=== PATIENT | male | born 1955 | race Two or more races ===

== ENCOUNTER 2025-01-28 06:41 | Day surgery (SDC) | payer MEDICARE, MEDICAID, SELFPAY ==
[2025-01-24 18:52] VITALS: BMI 25.7
[2025-01-27 11:17] LABS: Basophils # (Auto) 0.1 Thou/mm3 (0.0-0.2); Basophils % (Auto) 1 % (0-2.5); Eosinophils # (Auto) 0.1 Thou/mm3 (0.0-0.5); Eosinophils % (Auto) 1 % (0-10); Hematocrit 46.8 % (41.0-53.0); Hemoglobin 16.3 g/dL (13.5-16.0); Immature Granulocytes % (Auto) 1 % (0-0); Immature Granulocytes Auto 0.15 Thou/mm3 (0.00-0.00); Lymphocytes # (Auto) 1.4 Thou/mm3 (1.0-4.8); Lymphocytes % (Auto) 13 % (10-50); Mean Corpuscular HGB Conc 34.8 g/dl (31.0-37.0); Mean Corpuscular Hemoglobin 30.4 pg (25.0-35.0); Mean Corpuscular Volume 87 fL (80-100); Monocytes # (Auto) 0.9 Thou/mm3 (0.0-0.8); Monocytes % (Auto) 8 % (0-12); Neutrophils # (Auto) 8.3 Thou/mm3 (1.8-7.7); Neutrophils % (Auto) 76 % (37-80); Nucleated Red Blood Cell # 0.03 Thou/mm3 (0.00-0.00); Nucleated Red Blood Cell % 0 /100 WBC (0); Platelet Count 175 Thou/mm3 (140-440); RDW Standard Deviation 42.1 fL (35.1-43.9); Red Blood Count 5.37 Miln/mm3 (4.50-5.90); White Blood Count 10.8 Thou/mm3 (3.8-10.6)
[2025-01-27 11:24] LABS: INR 1.1 (0.9-1.3); Partial Thromboplastin Time 26.8 Seconds (22.0-36.0); Prothrombin Time 11.8 Seconds (9.0-12.2)
[2025-01-27 11:35] LABS: COVID-19 Antigen (In-House) Negative (Negative)
[2025-01-27 11:41] LABS: Anion Gap 12 (7-16); BUN/Creatinine Ratio 19 Ratio (12-20); Blood Urea Nitrogen 21 mg/dL (9-23); Calcium 9.6 mg/dL (8.3-10.6); Carbon Dioxide 28.5 mMol/L (20.0-31.0); Chloride 105 mMol/L (98-107); Creatinine (Component) 1.1 mg/dL (0.6-1.3); Estimated Creatinine Clearance 82.1 mL/min (>60); Glucose 144 mg/dL (74-106); Osmolality,Calculated 294 (275-295); Potassium 3.1 mMol/L (3.4-5.1); Sodium 145 mMol/L (136-145); eGFR > 60 See Note
--- NOTE | 2025-01-27 18:49 | EKG_ITS ---
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 : 1955 Requested By: Se Mason Order Number: [id number] Reading MD: Se Mason Measurements Intervals [place] Rate: 64 P: FL: QRS: -51 QRSD: 124 T: 122 QT: 385 QTc: 397 Interpretive Statements ATRIAL FIBRILLATION MODERATE VOLTAGE CRITERIA FOR LVH, CONSIDER NORMAL VARIANT [MEETS CRITERIA IN ONE OF: R(aVL), S(V1), R(V5), R(V5/V6)+S(V1)] POSSIBLE SEPTAL MYOCARDIAL INFARCTION , PROBABLY OLD [30 ms Q WAVE IN V1/V2] INFERIOR MYOCARDIAL INFARCTION , PROBABLY OLD [40+ ms Q WAVE AND/OR ST/T ABNORMALITY IN II/aVF] MODERATE T-WAVE ABNORMALITY, CONSIDER LATERAL ISCHEMIA [-0.1+ mV T WAVE IN I/aVL/V5/V6] No previous ECG available for comparison /[email or web address]/[id number]
[2025-01-28] VITALS (16 sets, daily range): BP systolic 153–186; BP diastolic 105–138; PULSE 62–88; RESP 12–21; TEMP 36.4–37.1; O2SAT 92–97
[2025-01-28] MEDS: DIAZEPAM 5 MG TABLET PO (07:20)
--- NOTE | 2025-01-28 08:14 | ESOP_ITS ---
Cardiac Cath Procedure Procedure Narrative Date of the procedure 01/28/2025 Title of the procedure 1. Left heart catheterization 2. Left coronary angiogram 3. Right coronary angiogram 4. Left ventriculogram 5. Conscious sedation 6. Radiographic interpretation supervision 7. Ultrasound guidence for Right radial access 8.angioplasty and stent placement to mid RCA Indication for the procedure This is a 69-year-old gentleman with past medical history of hypertension hyperlipidemia Patient was complaining of atypical chest pain Patient did undergo stress test which was abnormal Cardiac testing cholangiogram recommended Procedure This is done in the cardiac lab under continuous electrocardiographic monitoring Intermittent blood pressure monitoring right radial arterial access obtained using modified Seldinger technique 6 [place] radial sheath was placed under ultrasound guidence TIG catheter was used for selective injection of the Left coronary artery TIG cather was used for selective injection of the Right coroanry artery TIG cather was used for LV gram Findings Hemodynamics Left ventricular systolic function is 55% Left ventricular end-diastolic pressure is 16 mmHg Gradient across the aortic valve is 0 mm gradient Coronary anatomy Right dominance Left main coronary artery is normal Left anterior descending artery is luminal regularities in the midsegment 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 Diagonal vessel is luminal regularities Left circumflex artery is mid to distal luminal irregularities 30 to 40% Obtuse marginal vessel is showing luminal irregularities Right coronary artery is showing a mid segment lesion of 80% Posterior descending artery is luminal irregularities Conclusion Significant lesion noted in the RCA Recommendation Angioplasty and stent placement Angioplasty and stent placement mid RCA JR4 guiding catheter used to obtain coaxial access Banding Machine Operator 50 wire was used to cross the lesion Direct stenting with 4.5x 18 mm stent was placed across the lesion and dilated up to 14 ronal Post an angiogram reveals adequate expansion of the entire length of the stent Conclusion Successful angioplasty and stent placement mid RCA
--- NOTE | 2025-01-28 08:29 | EKG_ITS ---
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
[2025-01-28] MEDS: MORPHINE SULF INJ 10 MG/ML VIAL 2 MG IVP (08:32)
[2025-01-28] MEDS: SODIUM CHLORIDE 0.9% 1000 ML 500 ML 250 ML IV (08:37)
[2025-01-28] MEDS: ONDANSETRON INJ 2 MG/ML INJ 2 ML 4 MG IV (08:37)
--- NOTE | 2025-01-28 08:44 | PC.NURSE ---
MD made aware of patient's BP of 194/131. No new orders at this time as per MD continue to monitor patient. Notify MD immediately if there's any changes.
[2025-01-28] MEDS: hydrALAZINE INJ 20 MG/ML VIAL 10 MG IV (11:52)
== END 2025-01-28 12:30 | disposition home or self-care (01) ==
PROVIDERS: PCP Obstetrics & Gynecology; Referring Provider Internal Medicine; Visit Provider Internal Medicine
PROC: (CPT 93458; principal; 2025-01-28 07:45)
DX: I25.118 Atherosclerotic heart disease of native coronary artery with other forms of angina pectoris (principal); E78.5 Hyperlipidemia, unspecified; I10 Essential (primary) hypertension; Z01.810 Encounter for preprocedural cardiovascular examination
CPT/HCPCS: 93458; C9600; 36415; 80048; 85025; 85610; 85730; 87811; 93005; 99152; 99153; A4216; A4649; C1769; C1874; C1887; C1894; J0171; J0360; J0461; J0583; J1643; J2250; J2270; J2310; J2371; J2405; J3010; J3490; J7030; Q9967; A9270; J2305

== ENCOUNTER → 2025-03-04 | Outpatient (CLI) | payer MEDICARE, MEDICAID, SELFPAY ==
[2025-03-04 08:56] LABS: Basophils % (Auto) 0 % (0-2.5); Eosinophils # (Auto) 0.2 Thou/mm3 (0.0-0.5); Eosinophils % (Auto) 3 % (0-10); Hematocrit 49.1 % (41.0-53.0); Hemoglobin 17.2 g/dL (13.5-16.0); Immature Granulocytes % (Auto) 0 % (0-0); Immature Granulocytes Auto 0.02 Thou/mm3 (0.00-0.00); Lymphocytes # (Auto) 1.4 Thou/mm3 (1.0-4.8); Lymphocytes % (Auto) 21 % (10-50); Mean Corpuscular Hemoglobin 31.3 pg (25.0-35.0); Mean Corpuscular Volume 89 fL (80-100); Monocytes # (Auto) 0.6 Thou/mm3 (0.0-0.8); Monocytes % (Auto) 8 % (0-12); Neutrophils # (Auto) 4.5 Thou/mm3 (1.8-7.7); Neutrophils % (Auto) 67 % (37-80); Nucleated Red Blood Cell % 0 /100 WBC (0); Platelet Count 164 Thou/mm3 (140-440); RDW Standard Deviation 42.1 fL (35.1-43.9); Red Blood Count 5.49 Miln/mm3 (4.50-5.90); White Blood Count 6.7 Thou/mm3 (3.8-10.6)
[2025-03-04 09:05] LABS: INR 1.1 (0.9-1.3); Prothrombin Time 11.8 Seconds (9.0-12.2)
[2025-03-04 09:06] LABS: Anion Gap 7 (7-16); BUN/Creatinine Ratio 13 Ratio (12-20); Blood Urea Nitrogen 13 mg/dL (9-23); Calcium 8.8 mg/dL (8.3-10.6); Carbon Dioxide 33.4 mMol/L (20.0-31.0); Chloride 101 mMol/L (98-107); Glucose 118 mg/dL (74-106); Osmolality,Calculated 282 (275-295); Potassium 3.2 mMol/L (3.4-5.1); Sodium 141 mMol/L (136-145); eGFR > 60 See Note
== END | disposition home or self-care (01) ==
LOC: SLAB 08:11
PROVIDERS: PCP Obstetrics & Gynecology; Referring Provider Internal Medicine; Visit Provider Internal Medicine
DX: I25.10 Atherosclerotic heart disease of native coronary artery without angina pectoris (principal); I48.91 Unspecified atrial fibrillation
CPT/HCPCS: 36415; 80048; 85025; 85610; 85730

== ENCOUNTER 2025-07-03 08:14 | Emergency (ER) | payer MEDICARE, MEDICAID, SELFPAY ==
[2025-07-03 08:24] VITALS: BP 121/78; PULSE 77; RESP 18; TEMP 36.4; O2SAT 95; BMI 30.9
--- NOTE | 2025-07-03 09:51 | XR_ITS ---
Examination: CT abdomen and pelvis without contrast. Coronal 3-D reconstructions. Sagittal 2-D reconstructions. Date and time of exam:July 03, 2025, 1004 hrs. Comparison: February 15, 2023 Indications: Lower abdominal pain with hematuria today, history kidney stones CTDI: vol (mGy): 9.46 DLP: (mGycm): 571 Technique: Axial images of the abdomen have been obtained, 3 mm slice thickness Intravenous contrast material has not been administered. Low dose protocols were performed. One or more of the following dose reduction techniques were used; automated exposure control, adjustment of the mA and/or KV according to patient size, use of iterative reconstruction technique. Findings: Mild enlargement cardiac contour Diffuse fatty infiltration throughout the liver, liver is irregular in contour No gallstones No pancreatic or adrenal mass No splenic lesion 2 mm lower pole left renal calculus No hydronephrosis or ureteral calculi No bowel obstruction Normal appendix Colonic diverticulosis Urinary bladder contracted around a Ma catheter with thickened urinary bladder wall Suspicious for tiny bladder calculi Marked prostatomegaly with prostate calcifications, transverse prostate dimension 6.7 cm The multiple prostate calcifications appear to project partly within the prostatic urethra, clinical correlation advised Impression: 2 mm lower pole nonobstructing left renal calculus No hydronephrosis Normal appendix Marked prostatomegaly, prostate calcifications appear to project partly within the prostatic urethra, clinical correlation advised Suspicious for tiny bladder calculi, recommend urinary bladder sonography follow-up
--- NOTE | 2025-07-03 09:51 | PD.EDRME ---
Rapid Medical Screening Exam RME Arrival date/time: 07/03/25 08:14 69-year-old male presents to the emergency department today stating he has decreased urinary output from his Ma catheter patient reports pain Chief Complaint: Urogenital-Male Time Seen by Provider: 07/03/25 08:34 Vital signs: Vital Signs Temperature 97.5 F 07/03/25 08:24 Pulse Rate 77 07/03/25 08:24 Respiratory Rate 18 07/03/25 08:24 Blood Pressure 121/78 07/03/25 08:24 Pulse Oximetry (%) 95 07/03/25 08:24 Oxygen Delivery Method Room Air 07/03/25 08:24
--- NOTE | 2025-07-03 09:52 | PC.NURSE ---
16F FC flushed with 240ml sterile water, FC patent and draining to gravity. Gross hematuria before and after flushing.
[2025-07-03 11:06] LABS: Basophils # (Auto) 0.0 Thou/mm3 (0.0-0.2); Basophils % (Auto) 0 % (0-2.5); Eosinophils # (Auto) 0.4 Thou/mm3 (0.0-0.5); Eosinophils % (Auto) 4 % (0-10); Hematocrit 39.9 % (41.0-53.0); Hemoglobin 14.0 g/dL (13.5-16.0); Immature Granulocytes Auto 0.04 Thou/mm3 (0.00-0.00); Lymphocytes # (Auto) 1.1 Thou/mm3 (1.0-4.8); Lymphocytes % (Auto) 11 % (10-50); Mean Corpuscular HGB Conc 35.1 g/dl (31.0-37.0); Mean Corpuscular Hemoglobin 30.6 pg (25.0-35.0); Mean Corpuscular Volume 87 fL (80-100); Monocytes # (Auto) 0.7 Thou/mm3 (0.0-0.8); Monocytes % (Auto) 7 % (0-12); Neutrophils # (Auto) 7.8 Thou/mm3 (1.8-7.7); Neutrophils % (Auto) 78 % (37-80); Nucleated Red Blood Cell # 0.00 Thou/mm3 (0.00-0.00); Nucleated Red Blood Cell % 0 /100 WBC (0); Platelet Count 229 Thou/mm3 (140-440); RDW Standard Deviation 39.0 fL (35.1-43.9); Red Blood Count 4.58 Miln/mm3 (4.50-5.90); White Blood Count 10.1 Thou/mm3 (3.8-10.6)
[2025-07-03 11:25] LABS: Alanine Aminotransferase 30 U/L (10-49); Albumin, Serum 3.9 gm/dL (3.4-4.8); Albumin/Globulin Ratio 1.7 (1.2-2.2); Alkaline Phosphatase 49 U/L (46-116); Anion Gap 11 (7-16); Aspartate Amino Transferase 28 U/L (0-34); BUN/Creatinine Ratio 12 Ratio (12-20); Bilirubin,Total 0.9 mg/dL (0.3-1.2); Blood Urea Nitrogen 14 mg/dL (9-23); Calcium 9.4 mg/dL (8.3-10.6); Calcium (Corrected) 9.5 mg/dL (8.5-10.1); Carbon Dioxide 28.9 mMol/L (20.0-31.0); Chloride 103 mMol/L (98-107); Creatinine (Component) 1.2 mg/dL (0.6-1.3); Estimated Creatinine Clearance 70.1 mL/min (>60); Globulin 2.3 gm/dL (2.3-3.5); Glucose 102 mg/dL (74-106); Osmolality,Calculated 285 (275-295); Potassium 3.1 mMol/L (3.4-5.1); Sodium 143 mMol/L (136-145); Total Protein 6.2 gm/dL (5.7-8.2); eGFR > 60 See Note
[2025-07-03 11:29] VITALS: BP 168/100; PULSE 71; RESP 17; O2SAT 96
[2025-07-03 11:39] LABS: Collection Type, Urine Clean Catch; Squamous Epithelial Cell,Urine 0 /hpf (0-5)
[2025-07-03 11:53] LABS: INR 1.2 (0.9-1.3); Partial Thromboplastin Time 30.3 Seconds (22.0-36.0); Prothrombin Time 12.5 Seconds (9.0-12.2)
--- NOTE | 2025-07-03 11:54 | PD.EDMALE ---
ED Male Genitalurinary RME/HPI General Chief complaint: Urogenital-Male Stated complaint: No urination X 2 days Time Seen by Provider: 07/03/25 08:34 Arrival date/time: 07/03/25 08:14 RME / HPI RME / HPI Narrative: 69-year-old male patient with significant history of hypertension diabetes mellitus, CAD, currently on Plavix, came in for evaluation regarding acute urinary retention. Patient had procedure done in [place] in his bladder, according to him he had a, placed, and noticed that there is some blood clots obstructing the Ma catheter. Patient is complaining of suprapubic distention and discomfort. Denies any fever denies any other complaints no medications taken prior to arrival. Related Data Home Medications ?Medication ?Instructions ?Recorded ?Confirmed losartan 50 mg-hydrochlorothiazide 1 tab PO QDAY 09/11/19 01/28/25 12.5 mg tablet tamsulosin 0.4 mg capsule (Flomax) 0.4 mg PO QDAY 09/11/19 09/12/19 losartan 100 mg tablet 100 mg PO DAILY 01/28/25 01/28/25 Previous Rx's ?Medication ?Instructions ?Recorded aspirin 81 mg chewable tablet 81 mg PO QDAY #30 tabs 01/28/25 clopidogrel 75 mg tablet (Plavix) 75 mg PO QDAY #60 tabs 01/28/25 ciprofloxacin HCl 500 mg tablet 500 mg PO BID #14 tabs 07/03/25 (Cipro) Allergies Allergy/AdvReac Type Severity Reaction Status Date / Time No Known Allergies Allergy Verified 01/24/25 18:51 Review of Systems Review of Systems Narrative Review of Systems: Review of system reviewed and within normal limits except mentioned in HPI ED Exam Narrative Physical exam: VITAL SIGNS: Reviewed. GENERAL APPEARANCE: Alert and interactive, follows commands, no acute distress, HEAD AND FACE: Non-traumatic. ENT: PERRL, pink conjunctivitis, eyelid no trauma, Mucous membrane moist. NECK: Supple, nontender, no nuchal rigidity. CHEST: No tenderness, no crepitus, no paradoxical movement, no retractions. LUNGS: Clear, well ventilated, symmetric, no rales, no wheezing, no ronchi, no stridor, good breath sounds bilaterally. HEART: Regular rate, regular rhythm, no murmur, no gallops. ABDOMEN: Soft, positive bowel sounds, nondistended, no guarding, nontender, no rebound, no masses, RECTAL: Deferred. GENITAL: Ma catheter intact however there is a gross hematuria noted with blood clots, suprapubic distention and tenderness NEUROLOGICAL: Gross motor function intact sensory function intact, Appropriate for age. MUSCULOSKELETAL: low back nontender, full range of motion. EXTREMITIES: Nontender, full range of motion. SKIN: Color pink, dry, no rash, no lacerations, no abrasions, no contusions. LYMPHATICS: Deferred. Course Quality Measures none Orders Category Date Time Status Continuous Bladder Irrigation QSHIFT Care 07/03/25 11:52 Active Ma [Urinary Catheter, Remove] ONCE Care 07/03/25 08:44 Active Ma [Urinary Catheter] NOW Care 07/03/25 08:44 Active Ma to Leg Bag Routine Care 07/03/25 08:[address] abdomen pelvis wo con Stat Exams 07/03/25 09:51 Completed CBC Stat Lab 07/03/25 10:47 Completed Comprehensive Metabolic Panel Stat Lab 07/03/25 10:47 Completed Partial Thromboplastin Time Stat Lab 07/03/25 10:47 Completed Prothrombin Time with INR Stat Lab 07/03/25 10:47 Completed UA, C/S IF [Urinalysis, C/S if Indicated] Stat Lab 07/03/25 11:36 Completed Urine Culture Stat Lab 07/03/25 11:36 Received Ciprofloxacin HCl [Ciprofloxacin] Med 07/03/25 14:01 Discontinued 500 mg PO X1 ONE Lidocaine Jelly 2% Urojet [Xylocaine Jelly 2% Urojet] Med 07/03/25 11:51 Discontinued See Dose Instructions TOP X1 ONE Morphine Inj Med 07/03/25 11:59 Discontinued 4 mg IVP X1 ONE Ondansetron Inj [Zofran Inj] Med 07/03/25 11:59 Discontinued 4 mg IVP X1 ONE Potassium Chloride [K-Dur] Med 07/03/25 15:43 Discontinued 40 meq PO X1 ONE Ringers Lactated 1000 ml [Lactated Ringers] 1,000 ml Med 07/03/25 11:51 Discontinued IV 999 mls/hr Tranexamic Acid 1,000 mg Ivpb [Tranexamic Acid Ivpb] Med 07/03/25 14:02 Discontinued 1,000 mg in 100 ml IV X1 Vital Signs Vital signs: Vital Signs Temperature 97.5 F 07/03/25 08:24 Pulse Rate 77 07/03/25 08:24 Respiratory Rate 18 07/03/25 08:24 Blood Pressure 121/78 07/03/25 08:24 Pulse Oximetry (%) 95 07/03/25 08:24 Oxygen Delivery Method Room Air 07/03/25 08:24 Urogenital - Male [facility] Narrative MDM Narrative:: 69-year-old male patient with significant history of hypertension diabetes mellitus, CAD, currently on Plavix, came in for evaluation regarding acute urinary retention. Patient had procedure done in [place] in his bladder, according to him he had a, placed, and noticed that there is some blood clots obstructing the Ma catheter. Patient is complaining of suprapubic distention and discomfort. Denies any fever denies any other complaints no medications taken prior to arrival. Patient received 2 rounds of continuous bladder irrigations, and prior to discharge did not notice pinkish urine but normal blood clots noted. Draining well. Patient's urinalysis positive for hematuria and UTI. Patient was given Cipro. Patient was also given IV fluids. Was also given IV TXA. Was also given potassium replacement. Was advised to call his urologist problems sound unremarkable tomorrow morning. Patient agrees with the plan. Will be sent home on Cipro Patient data External records reviewed:: None Clinical information provided by:: patient Social determinants that could affect healthcare access:: none Patient has the following chronic illnesses:: BPH, hypertension How is presenting disease/condition affected by chronic disease/condition?: exacerbated by Evaluation data The following diagnostics were reviewed and interpreted by me:: lab results and radiology exam(s) Lab and/or radiology exams considered but not ordered:: None Interpretation Summary: See results [facility] Medications / Prescriptions Medications or Prescriptions considered but not ordered:: None Medication administrations:: Medication Administration History Discontinued Medications Ciprofloxacin (Ciprofloxacin Hcl 250 Mg Tablet) 500 mg PO X1 ONE Stop: 07/03/25 14:02 Last Admin: 07/03/25 14:12 Dose: 500 mg Documented By: CRISTHIAN Lactated Ringer's (Lactated Ringers) 1,000 mls @ 999 mls/hr IV .Q1H1M ONE Stop: 07/03/25 12:51 Last Infusion: 07/03/25 13:13 Dose: Infused Documented By: Admin: 07/03/25 12:00 Dose: 999 mls/hr Documented By: GM Tranexamic Acid (Tranexamic Acid Ivpb) 1,000 mg in 100 mls @ 200 mls/hr IV X1 ONE Stop: 07/03/25 14:31 Last Infusion: 07/03/25 14:42 Dose: Infused Documented By: Admin: 07/03/25 14:12 Dose: 200 mls/hr Documented By: EF Lidocaine HCl (Lidocaine Jelly 2% (Urojet) 10 Ml Tube) 0 ml TOP X1 ONE Stop: 07/03/25 11:52 Last Admin: 07/03/25 12:26 Dose: 10 ml Documented By: EF Morphine Sulfate (Morphine Sulf Inj 10 Mg/Ml Vial) 4 mg IVP X1 ONE Stop: 07/03/25 12:00 Last Admin: 07/03/25 12:25 Dose: 4 mg Documented By: EF Ondansetron HCl (Ondansetron Inj 2 Mg/Ml Inj 2 Ml) 4 mg IVP X1 ONE; Protocol Stop: 07/03/25 12:00 Last Admin: 07/03/25 12:25 Dose: 4 mg Documented By: EF Potassium Chloride (Potassium Chloride 20 Meq Tabcr) 40 meq PO X1 ONE Stop: 07/03/25 15:44 Last Admin: 07/03/25 16:22 Dose: 40 meq Documented By: EF IV fluids, morphine, potassium replacement Zofran Cipro and tranexamic acid Consultations Consultation(s) initiated? (list below): No Diagnosis Urogenital Male Differential Diagnosis: urinary tract infection, acute retention of urine and other (Gross hematuria) Most likely diagnosis given after review of the tests above:: Gross hematuria, acute urinary retention Admission Indicated Admission indicated?: not indicated Admission Request Was there a request for admission?: No Disposition Plan Disposition Plan: Discharge Discharge Attestation Discharge Attestation: The patient and all family members were given an opportunity to ask questions and understood the discharge instructions. Discharge instructions specifically effects, indications for sooner follow up or return to the emergency department, and the expected course of current diagnosis. Patient condition: Stable Discharge Plan Plan Patient Disposition: HOME (Self Care) Discharge Disposition comment: Stable Prescriptions/Referrals Prescriptions/Med Rec: New ciprofloxacin HCl [Cipro] 500 mg tablet 500 mg PO BID Qty: 14 0RF No Action tamsulosin [Flomax] 0.4 mg Capsule 0.4 mg PO QDAY losartan-hydrochlorothiazide 50-12.5 mg Tablet 1 tab PO QDAY losartan 100 mg tablet 100 mg PO DAILY Patient Comments: IMAN FLOR JANELaron PATRICIA Sesay FOR 90 DAYS clopidogrel [Plavix] 75 mg tablet 75 mg PO QDAY Qty: 60 0RF aspirin 81 mg tablet,chewable 81 mg PO QDAY Qty: 30 0RF Referrals: Leah Valenzuela FNP [Primary Care Provider] - In 1 week Problem List Clinical Impression: Gross hematuria, UTI (urinary tract infection) Patient/Caregiver Discharge Instructions Discharge Activity: activity as tolerated Education Materials: What is Hematuria? Additional Instructions: Thank you for the opportunity for serving you today. You are stable for discharged . You are advised to: Follow-up with your PCP in 1 to 2 days Return to ED for worsening of symptoms Increase oral fluids Please call your urologist from [place] in the morning. Print Language: Niuean Stand Alone Forms: Ashley Award Info., Patient Portal Info Letter
[2025-07-03] MEDS: RINGERS LACTATED 1000 ML 1,000 ML 999 ML IV (12:00)
[2025-07-03 12:16] LABS: Bilirubin,Urine Negative (Negative); Blood,Urine 3+ (Negative); Color,Urine Dark-Brown (Lt Yel-Yel); Glucose, Urine Negative (Negative); Ketones,Urine Negative (Negative); Leukocyte Esterase,Urine Positive (Negative); Nitrite,Urine Negative (Negative); PH,Urine 7.0 (5.0-7.0); Protein,Urine 2+ (Neg - Trace); RBC,Urine 34317 /hpf (0-3); Specific Gravity,Urine 1.009 (1.001-1.035); Urobilinogen,Urine Negative mg/dL (0.0-1.0); WBC,Urine 643 /hpf (0-5)
[2025-07-03] MEDS: MORPHINE SULF INJ 10 MG/ML VIAL 4 MG IVP (12:25)
[2025-07-03] MEDS: ONDANSETRON INJ 2 MG/ML INJ 2 ML 4 MG IVP (12:25)
[2025-07-03] MEDS: LIDOCAINE JELLY 2% (Urojet) 10 ML TUBE TOP (12:26)
[2025-07-03 12:29] LABS: Clarity,Urine Bloody (Clear/Hazy); Culture Indicated,Urine Yes
[2025-07-03 12:40] VITALS: BP 167/106; PULSE 73; RESP 20; TEMP 36.6; O2SAT 98
[2025-07-03] MEDS: CIPROFLOXACIN HCL 250 MG TABLET 500 MG PO (14:12)
[2025-07-03] MEDS: TRANEXAMIC ACID 1,000 MG IVPB 1,000 MG/100 ML BAG 200 MG IV (14:12)
[2025-07-03 14:39] VITALS: BP 155/93; PULSE 65; RESP 18; TEMP 36.8; O2SAT 96
[2025-07-03 18:25] VITALS: BP 107/72; PULSE 84; RESP 18; TEMP 36.7; O2SAT 95
[2025-07-03 19:57] VITALS: BP 152/102; PULSE 80; RESP 15; O2SAT 93
--- NOTE | 2025-07-03 19:58 | PC.NURSE ---
no iv cath arrival to unit
== END 2025-07-03 19:58 | disposition home or self-care (01) ==
PROVIDERS: Nurse Practitioner Primary Care; Emergency Provider Family Medicine; PCP Nurse Practitioner Family
DX: N39.0 Urinary tract infection, site not specified (principal); R31.0 Gross hematuria; N40.0 Benign prostatic hyperplasia without lower urinary tract symptoms
CPT/HCPCS: 51702; 36415; 74176; 80053; 81001; 85025; 85610; 85730; 87077; 87086; 87186; 96361; 96365; 96375; 99284; A4314; J2270; J2405; J3490; J7120; A9270

== ENCOUNTER 2025-07-08 13:06 | Emergency (ER) | payer MEDICARE, MEDICAID, SELFPAY ==
[2025-07-08 13:33] VITALS: BP 163/97; PULSE 78; RESP 18; TEMP 37.3; O2SAT 96
--- NOTE | 2025-07-08 13:47 | EDNOTE_ITS ---
<Statement entered by Marina Varma MD - 07/19/25 11:18> As co-signing physician, I was present and available for consult prn. I concur with the plan and care as documented by the midlevel provider. ED Male Genitalurinary RME/HPI General Chief complaint: General Adult/Misc Complain Stated complaint: PACHECO CAUSING PAIN; WANTS IT REMOVED Time Seen by Provider: 07/08/25 13:30 Source: patient Arrival date/time: 07/08/25 13:06 69-year-old male with a history of hypertension, BPH presents to the emergency room with a chief complaint of wanting his Pacheco catheter removed Mode of arrival: ambulatory Limitations: no limitations Related Data Home Medications ?Medication ?Instructions ?Recorded ?Confirmed losartan 50 mg-hydrochlorothiazide 1 tab PO QDAY 09/1101/28/25 12.5 mg tablet tamsulosin 0.4 mg capsule (Flomax) 0.4 mg PO QDAY 04/2409/12/19 losartan 100 mg tablet 100 mg PO DAILY 01/28/25 Previous Rx's ?Medication ?Instructions ?Recorded aspirin 81 mg chewable tablet 81 mg PO QDAY #30 tabs 0 01/28/25 clopidogrel 75 mg tablet (Plavix) 75 mg PO QDAY #60 ta bs 01/28/25 ciprofloxacin HCl 500 mg tablet 500 mg PO BID #14 tabs 07/03/25 (Cipro) Allergies Allergy/AdvReac Type Severity Reaction Status Date / Time No Known Allergies Allergy Verified 07/08/25 13:11 Review of Systems Review of Systems Systems Reviewed: All systems reviewed, normal except as documented Constitutional Constitutional: Reports system reviewed and no additional complaints, except as documented, Denies fatigue, Denies fever(s), Denies headache(s) and Denies weakness Eyes Eyes: Reports system reviewed and no additional complaints, except as documented, Denies blurry vision and Denies change in vision ENT Ears, Nose, Mouth, and Throat: Reports system reviewed and no additional complaints, except as documented, Denies otalgia, Denies headache(s), Denies nasal congestion, Denies throat swelling and Denies vertigo Cardiovascular Cardiovascular: Reports system reviewed and no additional complaints, except as documented, Denies chest pain, Denies dyspnea and Denies dyspnea on exertion Respiratory Respiratory: Reports system reviewed and no additional complaints, except as documented, Denies chest congestion, Denies cough, Denies dyspnea, Denies dyspnea on exertion and Denies wheezing Gastrointestinal Gastrointestinal: Reports system reviewed and no additional complaints, except as documented, Denies abdominal pain, Denies cramping, Denies nausea and Denies vomiting Genitourinary Genitourinary: Reports system reviewed and no additional complaints, except as documented, Denies dysuria and Denies hematuria Musculoskeletal Musculoskeletal: Reports system reviewed and no additional complaints, except as documented and Denies back pain Integumentary/Breasts Skin/Breast: Reports system reviewed and no additional complaints, except as documented and Denies wounds Neurologic Neurologic: Reports system reviewed and no additional complaints, except as documented, Denies confusion, Denies headache(s), Denies lack of coordination, Denies vertigo and Denies weakness Psychiatric Psychiatric: Reports system reviewed and no additional complaints, except as documented, Denies anxiety, Denies confusion, Denies depression, Denies paranoia, Denies suicidal ideation and Denies tactile hallucinations Endocrine Endocrine: Reports system reviewed and no additional complaints, except as documented and Denies fatigue Hematologic/Lymphatic Hematologic/Lymphatic: Reports system reviewed and no additional complaints, except as documented and Denies lymphadenopathy Allergic/Immunologic Allergic/Immunologic: Reports system reviewed and no additional complaints, except as documented, Denies throat swelling, Denies urticaria and Denies wheezing Past Medical History Past Medical History NEUROLOGIC: Negative Neurological Disorders CARDIAC: Positive Cardiac Disorders and Hypertension; Negative Congestive Heart Failure RESPIRATORY: Negative Chronic Obstructive Pulmonary Disease (COPD) GASTROINTESTINAL: Positive Gastrointestinal Disorders and Obesity; Negative Hepatitis GENITOURINARY: Positive Genitourinary Disorders, Kidney Stones and Benign Prostatic Hyperplasia; Negative Renal Disease REPRODUCTIVE: Negative Genital Herpes, Gonorrhea or Syphilis MUSCULOSKELETAL: Negative Musculoskeletal Disorders ENDOCRINE: Positive Endocrine Disorders and Diabetes Mellitus Type 2 (no medications at this time); Negative Diabetes Mellitus Type 1 HEMATOLOGIC: Negative Blood Disorders OTHER HISTORY: Positive Hospitalization; Negative Autoimmune Disease, Down Syndrome, Developmental Delay, Shingles, Falls, Blood Transfusions, Blood Transfusion Reaction, Anesthesia Reactions, Organ Transplant, Chemotherapy, Radiation Therapy, Hyperbaric Therapy, MRSA, VRSA, Vancomycin-Resistant Enterococci, Human Immunodeficiency Virus (HIV), [place] Pox, Measles, Mumps, Rubella (Vincentian Measles), Pertussis, Clostridium Difficile or Cancer Family History FAMILY HISTORY: Positive Family Surgery; Negative Family Psychiatric Problems, Family Respiratory Disorders, Family Cardiac Disorders, Family Gastrointestinal Problems, Family Cancer or Family Anesthesia Reaction Surgical History SURGICAL: Positive Abdominal Surgery; Negative Cardiac Surgery, Pacemaker, Endocrine Surgery, Thyroidectomy, Ear Surgery, Nephrectomy, Joint Replacement, Neurologic Surgery, Brain Shunt, Vasectomy or Organ Transplant Social History SMOKING STATUS: Never smoker ED Exam General Limitations: Present no limitations General appearance: Present alert and in no apparent distress Head Head exam: Present atraumatic Eye Eye exam: Present normal appearance, PERRL and EOMI ENT ENT exam: Present normal exam, normal oropharynx and mucous membranes moist Neck Neck exam: Present normal inspection, full ROM and trachea midline Chest Chest inspection: Present normal inspection and symmetric chest wall rise Respiratory Respiratory exam: Present normal lung sounds bilaterally Cardiovascular Cardiovascular exam: Present regular rate, normal rhythm and normal heart sounds Abdominal Exam Abdominal exam: Present soft and normal bowel sounds; Absent distention, tenderness, guarding, rebound or rigidity Extremities Exam Extremities exam: Present normal inspection and full ROM Back Exam Back exam: Present normal inspection and full ROM Neurological Exam Neurological exam: Present alert, oriented X3 and CN II-XII intact Psychiatric Psychiatric exam: Present normal affect and normal mood Skin Skin exam: Present warm, dry, intact and normal color Course Quality Measures none Vital Signs Vital signs: Vital Signs Temperature 99.2 F 07/08/25 13:33 Pulse Rate 78 07/08/25 13:33 Respiratory Rate 18 07/08/25 13:33 Blood Pressure 163/97 H 07/08/25 13:33 Pulse Oximetry (%) 96 07/08/25 13:33 Oxygen Delivery Method Room Air 07/08/25 13:33 Urogenital - Male MDM Narrative MDM Narrative:: 69-year-old male with a history of hypertension, BPH presents to the emergency room with a chief complaint of wanting his Pacheco catheter removed Patient is hemodynamically stable and in no apparent distress Physical examination shows a soft nontender abdomen. Patient states he is here to get his Pacheco catheter removed as it is causing him irritation. Patient states he had his catheter placed due to urinary retention and blood in the urine. Patient states he has a history of an enlarged prostate and is going to see his urologist next week. I educated patient and after education patient decided to keep the catheter in place as he has not seen his urologist and he fears he will have acute urinary retention again Patient was discharged and educated to follow-up with primary care provider in the next 24 to 48 hours and return to the emergency room for any evidence of worsening signs or symptoms Patient data External records reviewed:: [facility] previous records Clinical information provided by:: patient Social determinants that could affect healthcare access:: none Patient has the following chronic illnesses:: BPH How is presenting disease/condition affected by chronic disease/condition?: exacerbated by Evaluation data The following diagnostics were reviewed and interpreted by me:: lab results and radiology exam(s) Lab and/or radiology exams considered but not ordered:: Labs and radiology exams considered and ordered Interpretation Summary: N/A Medications / Prescriptions Medications or Prescriptions considered but not ordered:: No medication given Medication administrations:: Medication given Consultations Consultation(s) initiated? (list below): No Diagnosis Urogenital Male Differential Diagnosis: prostatitis, acute retention of urine and other (Complication with catheter) Most likely diagnosis given after review of the tests above:: Complication with catheter Admission Indicated Admission indicated?: not indicated Admission Request Was there a request for admission?: No Disposition Plan Disposition Plan: Discharge Discharge Attestation Discharge Attestation: The patient and all family members were given an opportunity to ask questions and understood the discharge instructions. Discharge instructions specifically effects, indications for sooner follow up or return to the emergency department, and the expected course of current diagnosis. Patient condition: Stable Discharge Plan Plan Patient Disposition: HOME (Self Care) Discharge Disposition comment: Stable Prescriptions/Referrals Prescriptions/Med Rec: No Action tamsulosin [Flomax] 0.4 mg Capsule 0.4 mg PO QDAY losartan-hydrochlorothiazide 50-12.5 mg Tablet 1 tab PO QDAY losartan 100 mg tablet 100 mg PO DAILY Patient Comments: TOME CHACHO TABLETA TODOS LOS D FOR 90 DAYS clopidogrel [Plavix] 75 mg tablet 75 mg PO QDAY Qty: 60 0RF aspirin 81 mg tablet,chewable 81 mg PO QDAY Qty: 30 0RF ciprofloxacin HCl [Cipro] 500 mg tablet 500 mg PO BID Qty: 14 0RF Problem List Clinical Impression: Complication of Pacheco catheter Patient/Caregiver Discharge Instructions Additional Instructions: Por favor, acuda a montano m?dico de cabecera en las pr?ximas 24 a 48 horas. Por favor, acuda a montano daiana con el ur?logo el pr?ximo jae. Ante cualquier signo de empeoramiento de los signos o s?ntomas, acuda a urgencias de inmediato. Print Language: Cuban Stand Alone Forms: Ashley Award Info., Patient Portal Info Letter PA/TONG CARRIER Supervising Physician PA/TONG CARRIER Supervising Physician: Dr. VARMA
== END 2025-07-08 13:57 | disposition home or self-care (01) ==
LOC: SERX 13:57
PROVIDERS: Emergency Provider Emergency Medicine
DX: T83.84XA Pain due to genitourinary prosthetic devices, implants and grafts, initial encounter (principal); Y84.6 Urinary catheterization as the cause of abnormal reaction of the patient, or of later complication, without mention of misadventure at the time of the procedure
CPT/HCPCS: 99281